=== PATIENT | female | born 1995 | race Two or more races ===

== ENCOUNTER 2017-09-23 16:53 | Emergency (ER) | payer OTHER ==
--- NOTE | 2017-09-23 19:57 | RAD ---
INDICATION: Left hand pain COMPARISON: None TECHNIQUE: AP, lateral, and oblique views were obtained. FINDINGS: There is an oblique, nonangulated, minimally displaced, extra articular fracture of the proximal fifth metacarpal. There are no other fractures. There is associated soft tissue swelling. IMPRESSION: FIFTH METACARPAL FRACTURE.
--- NOTE | 2017-09-23 20:00 | ED ---
Upper Extremity Pain - HPI Summary HPI Summary: 21 female presents to ED with complaints of left hand injury and pain that began yesterday after falling and landing on outstretched hand. Patient states she has had pain on left ulnar side since this incident. Has not taken any medication. Admits to swelling, denies bruising. No other injuries, wrist or forearm pain. Has FROM however causes pain. No other complaints at this time. No PMHx. Denies numbness/tingling and weakness. Patient is left hand dominant. - History of Current Complaint Chief Complaint: EDExtremityUpper Stated Complaint: FALL/LT HAND INJURY Time Seen by Provider: 09/23/17 18:57 Hx Obtained From: Patient Mechanism Of Injury: Fall From A Standing Position, Twisted Onset/Duration: Started Days Ago - yesterday, Traumatic, Still Present Timing: Constant Severity Initially: Moderate Severity Currently: Moderate Pain Location: Hand - left Character: Sharp, Aching Aggravating Factor(s): Movement Alleviating Factor(s): Rest Associated Signs & Symptoms: Positive: Swelling. Negative: Numbness/Tingling Related History: Dominant Hand Left - Allergies/Home Medications Allergies/Adverse Reactions: Allergies Allergy/AdvReac Type Severity Reaction Status Date / Time No Known Allergies Allergy Verified 09/23/14 15:09 PMH/Surg Hx/FS Hx/Imm Hx Cardiovascular History: Denies: Hx Angina, Hx Coronary Artery Disease, Hx Hypercholesterolemia, Hx Hypertension, Hx Myocardial Infarction, Hx Valvular Heart Disease Respiratory History: Denies: Hx Asthma, Hx Chronic Obstructive Pulmonary Disease (COPD) - Surgical History Surgery Procedure, Year, and Place: n/a - Immunization History Immunizations Up to Date: Yes Infectious Disease History: No Infectious Disease History: Denies: Traveled Outside the [place] in Last 30 Days - Family History Known Family History: Positive: None - Social History Alcohol Use: Weekly Alcohol Amount: 1-2 Substance Use Type: Reports: None Smoking Status (MU): Never Smoked Tobacco Review of Systems Constitutional: Negative Cardiovascular: Negative Respiratory: Negative Positive: Arthralgia, Myalgia, Decreased ROM, Edema - left hand Skin: Negative Neurological: Negative All Other Systems Reviewed And Are Negative: Yes Physical Exam Triage Information Reviewed: Yes Vital Signs On Initial Exam: Initial Vitals Temp Pulse Resp BP Pulse Ox 98.4 F 57 16 110/70 100 09/23/17 16:56 09/23/17 16:56 09/23/17 16:56 09/23/17 16:56 09/23/17 16:56 Vital Signs Reviewed: Yes Appearance: Positive: Well-Appearing, No Pain Distress, Well-Nourished Skin: Positive: Warm, Skin Color Reflects Adequate Perfusion, Dry, Other - edema of left ulnar side of hand metacarpals, no significant ecchymosis or other obvious deformity. Negative: Cold, Cyanosis @, Pale, Erythema @ Head/Face: Positive: Normal Head/Face Inspection Eyes: Positive: Conjunctiva Clear ENT: Positive: Hearing grossly normal Neck: Positive: Supple, Nontender Respiratory/Lung Sounds: Positive: Clear to Auscultation, Breath Sounds Present. Negative: Decreased Breath Sounds, Rales, Rhonchi, Wheezes Cardiovascular: Positive: Normal, RRR, Pulses are Symmetrical in both Upper and Lower Extremities - 2+ radial b/l. Negative: Murmur, Rub Musculoskeletal: Positive: Normal, Strength/ROM Intact - pain with left fifth digit however FROM, Abnormal @ - some crepitus with palpation of proximal fifth MCP., Pain @ - on palpation of 5th MCP, Edema Left - fifth MCP, Other - no snuff box tenderness. Negative: Limited @, Interruption @ Neurological: Positive: Normal, Sensory/Motor Intact - sensation intact, Alert, Oriented to Person Place, Time, Reflexes Intact, NV Bundle Intact Distally, Normal Gait Procedures - Splinting Location: left hand Hand-Made Type: plaster Splint: ulnar - gutter Pre-Proc Neuro Vasc Exam: normal Post-Proc Neuro Vasc Exam: normal, unchanged from pre-exam Diagnostics - Vital Signs Vital Signs Temp Pulse Resp BP Pulse Ox 09/23/17 16:56 98.4 F 57 16 110/70 100 - Laboratory Lab Statement: Any lab studies that have been ordered have been reviewed, and results considered in the medical decision making process. - Radiology hand, left Xray Interpretation: Positive (See Comments) - There is an oblique, nonangulated , minimally displaced, extra articular fracture of the proximal fifth metacarpal. There are no other fractures. There is associated soft tissue swelling. Radiology Interpretation Completed By: Radiologist Course/Dx - Course Course Of Treatment: did not want pain management at this time. xray obtained and showed fracture fo fifth proximal metacarpal. was splinted without complication. tolerated procedure well. CMS intact before and after. RICE and NSAIDs. follow up with ortho. no concern of other injury or concern at this time. aware of worsening signs and symptoms to watch out for. - Diagnoses Differential Diagnosis/HQI/PQRI: Positive: Fracture (Closed), Hematoma, Strain, Sprain Provider Diagnoses: Fracture of fifth metacarpal bone of left hand Discharge - Discharge Plan Condition: Stable Disposition: HOME Patient Education Materials: Hand Fracture (ED) Forms: *School Release Referrals: [facility] - Kevin ROBERT [Primary Care Provider] - Dorothea Coronel MD [Medical Doctor] - Additional Instructions: Do not remove splint or get splint wet. Rest, Ice, Elevate. Ibuprofen or Tylenol for pain/inflammation. Follow up with ortho, call and make an appointment. Any new or worsening symptoms please seek medical attention promptly, as discussed (splint feels too tight).
[2017-09-23 20:37] VITALS: BP 112/53
== END 2017-09-23 20:36 | disposition home or self-care (01) ==
LOC: ED 16:53
DX: S62.317A Displaced fracture of base of fifth metacarpal bone, left hand, initial encounter for closed fracture (principal); W19.XXXA Unspecified fall, initial encounter; Y93.9 Activity, unspecified; Y92.9 Unspecified place or not applicable
CPT/HCPCS: 99282